=== PATIENT | male | born 1990 | race African-American/Black ===

== ENCOUNTER 2021-12-27 19:16 | Inpatient (IN) | payer MEDICAID ==
[~2021-12-27] VITALS: Ht 175.3 cm; Wt 94.1 kg
--- NOTE | 2021-12-27 20:11 | PHYS DOC ---
Past Medical History Additional Past Medical Histor: Premature 26 weeks Past Surgical History: Other Additional Past Surgical Histo: colectomy x2, head bleed / heart surgery as b jeannette Smoking Status: Never Smoker Alcohol Use: None General Adult EDM: Chief Complaint: ABDOMINAL PAIN HPI: HPI: Patient is a 31 year old male presents with his sister for evaluation of abdominal pain associated with nausea vomiting and diarrhea. Patient was born 26 weeks . Patient subsequently underwent brain cardiac and abdominal surgeries when younger. Sister states patient recently had similar abdominal symptoms and states patient had a twisting of his bowels. 2 AM this morning patient started to have nausea vomiting and diarrhea. This afternoon 1600 hrs. patient was treated with Pepto-Bismol for his nausea vomiting diarrhea. At that time patient's abdominal pain started. On exam patient's abdomen is diffusely tender. Review of Systems: Review of Systems: Constitutional: Denies fever or chills. [] Eyes: Denies change in visual acuity. [] HENT: Denies nasal congestion or sore throat. [] Respiratory: Denies cough or shortness of breath. [] Cardiovascular: Denies chest pain or edema. [] GI: Positive abdominal pain, Positive nausea, Positive vomiting, Positive diarrhea. [] : Denies dysuria. [] Musculoskeletal: Denies back pain or joint pain. [] Integument: Denies rash. [] Neurologic: Denies headache, focal weakness or sensory changes. [] Endocrine: Denies polyuria or polydipsia. [] Lymphatic: Denies swollen glands. [] Psychiatric: Denies depression or anxiety. [] Heart Score: C/O Chest Pain: N/A Risk Factors: Risk Factors: DM, Current or recent (<one month) smoker, HTN, HLP, family history of CAD, obesity. Risk Scores: Score 0 - 3: 2.5% MACE over next 6 weeks - Discharge Home Score 4 - 6: 20.3% MACE over next 6 weeks - Admit for Clinical Observation Score 7 - 10: 72.7% MACE over next 6 weeks - Early Invasive Strategies Current Medications: Current Medications Medications (Trade) Dose Ordered Sig/Twin Start Time Stop Time Status Last Admin Dose Admin Morphine Sulfate (Morphine Sulfate) 4 mg PRN Q2HR PRN 12/27/21 20:15 Ondansetron HCl (Zofran) 4 mg 1X ONCE 12/27/21 20:15 12/27/21 20:16 Sodium Chloride 1,000 ml @ 1,000 mls/hr 1X ONCE 12/27/21 20:15 12/27/21 21:14 Allergies: Allergies: Allergies Coded Allergies Type Severity Reaction Last Updated Verified No Known Drug Allergies 12/27/21 No Physical Exam: PE: Constitutional: Well developed, well nourished, no acute distress, non-toxic appearance. [] HENT: Normocephalic, atraumatic, bilateral external ears normal, oropharynx moist, no oral exudates, nose normal. [] Eyes: PERRLA, EOMI, conjunctiva normal, no discharge. [] Neck: Normal range of motion, no tenderness, supple, no stridor. [] Cardiovascular:Heart rate regular rhythm, no murmur [] Lungs & Thorax: Bilateral breath sounds clear to auscultation [] Abdomen: Bowel sounds normal, diffusely tenderness, no masses, no pulsatile masses. [] Skin: Warm, dry, no erythema, no rash. [] Back: No tenderness, no CVA tenderness. [] Extremities: No tenderness, no cyanosis, no clubbing, ROM intact, no edema. [] Neurologic: Alert , normal motor function, normal sensory function, no focal deficits noted. [] Psychologic: Affect normal, judgement normal, mood normal. [] Current Patient Data: Vital Signs: Vital Signs Date Time Temp Pulse Resp B/P (MAP) Pulse Ox O2 Delivery O2 Flow Rate FiO2 12/27/21 19:25 98.4 83 18 143/79 (100) 98 Room Air 98.4 EKG: EKG: [] Radiology/Procedures: Radiology/Procedures: [] Impression: Multiple dilated small bowel loops identified in the right mid and right lower abdomen likely small bowel obstruction with probable transition point identified in the mid abdomen Course & Med Decision Making: Course & Med Decision Making Pertinent Labs and Imaging studies reviewed. (See chart for details) [] Radiologic imaging consistent with small bowel obstruction. Patient's pain treated with morphine. He also received IV fluids. An NG tube will be ordered. Patient will be admitted to the hospitalist with general surgery consult. Aleshia Disclaimer: Aleshia Disclaimer: This electronic medical record was generated, in whole or in part, using a voice recognition dictation system. Departure Departure Impression: Primary Impression: Small bowel obstruction Disposition: HOME / SELF CARE / HOMELESS Condition: STABLE Patient Instructions: Small Bowel Obstruction NELIDA BARRERA DO Dec 27, 2021 20:11
[2021-12-27] MEDS ORDERED: IV NORMAL SALINE 1000ML BAG 1,000 ML IV ONE (20:15)
[2021-12-27] MEDS ORDERED: ONDANSETRON PF 4 MG/2 ML VIAL. IVP ONE (20:15)
[2021-12-27] MEDS ORDERED: MORPHINE SULFATE 4 MG/ML INJ. IV PRN (20:15)
[2021-12-27 20:21] LABS: BASO % 0 % (0-3); EOS % 1 % (0-3); HEMATOCRIT 46.5 % (39.0-53.0); LYMPH # 0.5 x10^3/uL (1.0-4.8); LYMPH % 10 % (24-48); MEAN CORPUSCULAR HEMOGLOBIN 27 pg (25-35); MEAN CORPUSCULAR HGB CONC 32 g/dL (31-37); MEAN CORPUSCULAR VOLUME 82 fL (79-100); MONO # 0.7 x10^3/uL (0.0-1.1); MONO % 12 % (0-9); NEUT # 4.2 x10^3/uL (1.8-7.7); NEUT % 77 % (31-73); PLATELET COUNT 301 x10^3/uL (140-400); RED BLOOD COUNT 5.64 x10^6/uL (4.30-5.70); RED CELL DISTRIBUTION WIDTH 13.2 % (11.5-14.5); WHITE BLOOD COUNT 5.5 x10^3/uL (4.0-11.0)
[2021-12-27] MEDS ORDERED: IOHEXOL 300 MG/ML 100ML VIAL. IV ONE (21:00)
[2021-12-27] MEDS ORDERED: CONTRAST GIVEN. MC PRN (21:15)
[2021-12-27 21:17] LABS: CALCIUM 8.7 mg/dL (8.5-10.1); CREATININE 1.1 mg/dL (0.7-1.3); GFR 94.5; POTASSIUM 3.5 mmol/L (3.5-5.1)
[2021-12-27 21:23] LABS: ALBUMIN 3.7 g/dL (3.4-5.0); ALBUMIN/GLOBULIN RATIO 1.1 (1.0-1.7); TOTAL BILIRUBIN 1.2 mg/dL (0.2-1.0); TOTAL PROTEIN 7.2 g/dL (6.4-8.2)
--- NOTE | 2021-12-27 21:56 | RAD ---
Examination: CT of the abdomen pelvis with IV contrast HISTORY: History of abdominal pain COMPARISON: None available Technique: Axial CT images of the abdomen pelvis were performed IV contrast. Coronal and sagittal ref ormats are performed Exposure: One or more of the following individualized dose reduction techniques were utilized for thi s examination: 1. Automated exposure control 2. Adjustment of the mA and/or kV according to patient size 3. Use of iterative reconstruction technique. FINDINGS: The bibasilar lungs are clear. No evidence of free air identified in the abdomen The liver, adrenals grossly appears unremarkable. There is a cystic structure identified in the poste rior portion the spleen measuring 1.5 cm probably cyst. The stomach is mildly distended. The gallblad arnav is mildly distended. Multiple dilated small bowel loops identified in the right mid and right low er abdomen. Probable transition point identified in the mid abdomen best seen on series 2 image 56. Feces and gas noted in the colon. Urinary bladder is mildly distended Bilateral kidneys enhance symmetrically. No evidence of lytic bony destructive lesion IMPRESSION: 1. Multiple dilated small bowel loops identified in the right mid and right lower abdomen likely sma ll bowel obstruction with probable transition point identified in the mid abdomen Electronically signed by: Gatito Corbett MD (12/27/2021 9:53 PM) [id number]
[2021-12-27] MEDS ORDERED: ONDANSETRON PF 4 MG/2 ML VIAL. IVP PRN (22:15)
[2021-12-27] MEDS ORDERED: MORPHINE SULFATE 2 MG/ML INJ. IVP PRN (22:15)
[2021-12-27] MEDS ORDERED: BENZOCAINE ONE 20% MUCOSAL SPRAY. (22:59)
[2021-12-27] MEDS ORDERED: BENZOCAINE ONE 20% MUCOSAL SPRAY. MM (23:15)
--- NOTE | 2021-12-27 23:34 | RAD ---
XR ABDOMEN 1V 12/27/2021 11:20 PM INDICATION: Nasogastric tube COMPARISON: None available. TECHNIQUE: Single limited view of the abdomen is provided. FINDINGS/ IMPRESSION: Nasogastric tube is identified with the side port projecting over the left upper quadrant abdomen in expected region of the stomach. Gas-filled loops of small and large bowel are noted without significant dilatation. Lung bases are cl ear. Electronically signed by: Ailyn Dias MD (12/27/2021 11:32 PM) TRAMAINE
[2021-12-27 23:59] VITALS: BP 124/74
--- NOTE | 2021-12-28 00:28 | NUR ---
Call to Chanel RN in ED to verify NG in proper position for use and clarification of suction on NG. Chanel stated that DR. Gutiérrez stated NG was okay to use and clarification for NG to low intermittent suction.
[2021-12-28] MEDS ORDERED: GABA100C6 PO (01:06)
[2021-12-28] MEDS ORDERED: TIZA-75 PO (01:07)
[2021-12-28] MEDS: IV NORMAL SALINE 1000ML BAG 1,000 ML IV SCH ×3 (01:59→22:20)
[2021-12-28 03:00] VITALS: BP 113/69
[2021-12-28 07:00] VITALS: BP 107/68
--- NOTE | 2021-12-28 09:01 | PDOC2 ---
CONSULT Date of Consult Date of Consult DATE: 12/28/21 TIME: 08:56 Reason for Consult Reason for Consult: Abdominal pain nausea vomiting diarrhea Referring Physician Referring Physician: Hospitalist Identification/Chief Complaint Chief Complaint Abdominal pain Source Source: Chart review, Patient History of Present Illness Reason for Visit: 31-year-old male who yesterday after eating at [employer] few hours later developed nausea vomiting and diarrhea and abdominal pain the pain became worse to the point where he came to the emergency department for further evaluation. CT scan was performed which showed dilated loops of small bowel concerning for small bowel obstruction versus ileus. Currently patient is resting comfortably in bed states he is feeling a little bit better still some abdominal pain and feels somewhat bloated NG tube is in place Past Medical History Cardiovascular: Other (Heart surgery as an ) Pulmonary: No pertinent hx CENTRAL NERVOUS SYSTEM: Other (Brain surgery as an infant) GI: No pertinent hx Heme/Onc: No pertinent hx Hepatobiliary: No pertinent hx Psych: No pertinent hx Infectious disease: No pertinent hx ENT: No pertinent hx Renal/: No pertinent hx Endocrine: No pertinent hx Dermatology: No pertinent hx Past Surgical History Past Surgical History: Other (Colon resection x2, heart surgery, brain surgery all as ) Family History Family History: No Significant Social History No ALCOHOL: none Drugs: None Lives: with Family Current Problem List Problem List Problems Medical Problems: (1) Small bowel obstruction Status: Acute Current Medications Current Medications Current Medications Sodium Chloride 1,000 ml @ 1,000 mls/hr 1X ONCE IV Last administered on 12/27/21at 20:15; Start 12/27/21 at 20:15; Stop 12/27/21 at 21:14; Status DC Morphine Sulfate (Morphine Sulfate) 4 mg PRN Q2HR PRN IV PAIN Last administered on 12/27/21at 20:16; Start 12/27/21 at 20:15 Ondansetron HCl (Zofran) 4 mg 1X ONCE IVP Last administered on 12/27/21at 20:16; Start 12/27/21 at 20:15; Stop 12/27/21 at 20:16; Status DC Iohexol (Omnipaque 300 Mg/ml) 75 ml 1X ONCE IV ; Start 12/27/21 at 21:00; Stop 12/27/21 at 21:01; Status DC Info (CONTRAST GIVEN -- Rx MONITORING) 1 each PRN DAILY PRN MC SEE COMMENTS; Start 12/27/21 at 21:15; Stop 12/29/21 at 21:14 Ondansetron HCl (Zofran) 4 mg PRN Q8HRS PRN IVP NAUSEA/VOMITING; Start 12/27/21 at 22:15; Stop 12/28/21 at 22:14 Morphine Sulfate (Morphine Sulfate) 2 mg PRN Q2HR PRN IVP PAIN; Start 12/27/21 at 22:15; Stop 12/28/21 at 22:14 Benzocaine (Hurricaine One) 1 spray STK-MED ONCE .ROUTE ; Start 12/27/21 at 22:59; Stop 12/27/21 at 23:00; Status DC Benzocaine (Hurricaine One) 1 spray 1X ONCE MM Last administered on 12/27/21at 23:02; Start 12/27/21 at 23:15; Stop 12/27/21 at 23:16; Status DC Sodium Chloride 1,000 ml @ 100 mls/hr Q10H IV Last administered on 12/28/21at 01:59; Start 12/28/21 at 01:45 Active Scripts Active Reported Tizanidine Hcl 4 Mg Tablet 10 Mg PO QIDPRN PRN Gabapentin 100 Mg Capsule 100 Mg PO BID Allergies Allergies: Coded Allergies: No Known Drug Allergies (Unverified , 12/27/21) ROS General: No: Chills, Night Sweats, Fatigue, Malaise, Appetite, Other PSYCHOLOGICAL ROS: No: Anxiety, Behavioral Disorder, Concentration difficultie, Decreased libido, Depression, Disorientation, Hallucinations, Hostility, Irritablity, Memory difficulties, Mood Swings, Obsessive thoughts, Physical abuse, Sexual abuse, Sleep disturbances, Suicidal ideation, Other Eyes: No Blurry vision, No Decreased vision, No Double vision, No Dry eyes, No Excessive tearing, No Eye Pain, No Itchy Eyes, No Loss of vision, No Photophobia, No Scotomata, No Uses contacts, No Uses glasses, No Other HEENT: No: Heacaches, Visual Changes, Hearing change, Nasal congestion, Nasal discharge, Oral lesions, Sinus pain, Sore Throat, Epistaxis, Sneezing, Snoring, Tinnitus, Vertigo, Vocal changes, Other ALLERGY AND IMMUNOLOGY: No: Hives, Insect Bite Sensitivity, Itchy/Watery Eyes, Nasal Congestion, Post Nasal Drip, Seasonal Allergies, Other Hematological and Lymphatic: No: Bleeding Problems, Blood Clots, Blood Transfus ions, Brusing, Night Sweats, Pallor, Swollen Lymph Nodes, Other ENDOCRINE: No: Breast Changes, Galactorrhea, Hair Pattern Changes, Hot Flashes, Malaise/lethargy, Mood Swings, Palpitations, Polydipsia/polyuria, Skin Changes, Temperature Intolerance, Unexpected Weight Changes, Other Respiratory: No: Cough, Hemoptysis, Orthopnea, Pleuritic Pain, Shortness of breath, SOB with excertion, Sputum Changes, Stridor, Tachypnea, Wheezing, Other Cardiovascular: No Chest Pain, No Palpitations, No Orthopnea, No Paroxysmal Noc. Dyspnea, No Edema, No Lt Headedness, No Other Gastrointestinal: Yes Nausea, Yes Vomiting, Yes Abdominal Pain, Yes Diarrhea Genitourinary: No Dysuria, No Frequency, No Incontinence, No Hematuria, No Retention, No Discharge, No Urgency, No Pain, No Flank Pain, No Other, No , No , No , No , No , No , No Musculoskeletal: No Gait Disturbance, No Joint Pain, No Joint Stiffness, No Joint Swelling, No Muscle Pain, No Muscular Weakness, No Pain In:, No Swelling In:, No Other Neurological: No Behavorial Changes, No Bowel/Bladder ControlChng, No Co nfusion, No Dizziness, No Gait Disturbance, No Headaches, No Impaired Coord/balance, No Memory Loss, No Numbness/Tingling, No Seizures, No Speech Problems, No Tremors, No Visual Changes, No Weakness, No Other Skin: No Dry Skin, No Eczema, No Hair Changes, No Lumps, No Mole Changes, No Mottling, No Nail Changes, No Pruritus, No Rash, No Skin Lesion Changes, No Other, No Acne Physical Exam General: Alert, Oriented X3, Cooperative, mild distress HEENT: Atraumatic, PERRLA, EOMI Lungs: Clear to auscultation, Normal air movement Heart: Regular rate, No murmurs Abdomen: Soft, Other (Mildly diffusely tender no peritoneal signs mildly distended) Extremities: No edema Skin: No significant lesion Neuro: Normal speech Psych/Mental Status: Mental status NL Vitals VITALS Vital Signs Date Time Temp Pulse Resp B/P (MAP) Pulse Ox O2 Delivery O2 Flow Rate FiO2 4/1/22 07:00 98.2 78 18 107/68 (81) 92 Room Air 98.2 Labs Labs Laboratory Tests Test 12/27/21 19:58 12/27/21 21:00 White Blood Count 5.5 x10^3/uL (4.0-11.0) Red Blood Count 5.64 x10^6/uL (4.30-5.70) Hemoglobin 15.0 g/dL (13.0-17.5) Hematocrit 46.5 % (39.0-53.0) Mean Corpuscular Volume 82 fL (79-100) Mean Corpuscular Hemoglobin 27 pg (25-35) Mean Corpuscular Hemoglobin Concent 32 g/dL (31-37) Red Cell Distribution Width 13.2 % (11.5-14.5) Platelet Count 301 x10^3/uL (140-400) Neutrophils (%) (Auto) 77 % (31-73) Lymphocytes (%) (Auto) 10 % (24-48) Monocytes (%) (Auto) 12 % (0-9) Eosinophils (%) (Auto) 1 % (0-3) Basophils (%) (Auto) 0 % (0-3) Neutrophils # (Auto) 4.2 x10^3/uL (1.8-7.7) Lymphocytes # (Auto) 0.5 x10^3/uL (1.0-4.8) Monocytes # (Auto) 0.7 x10^3/uL (0.0-1.1) Eosinophils # (Auto) 0.0 x10^3/uL (0.0-0.7) Basophils # (Auto) 0.0 x10^3/uL (0.0-0.2) Sodium Level 142 mmol/L (136-145) Potassium Level 3.5 mmol/L (3.5-5.1) Chloride Level 106 mmol/L (98-107) Carbon Dioxide Level 31 mmol/L (21-32) Anion Gap 5 (6-14) Blood Urea Nitrogen 13 mg/dL (8-26) Creatinine 1.1 mg/dL (0.7-1.3) Estimated GFR (Cockcroft-Gault) 94.5 BUN/Creatinine Ratio 12 (6-20) Glucose Level 92 mg/dL (70-99) Calcium Level 8.7 mg/dL (8.5-10.1) Total Bilirubin 1.2 mg/dL (0.2-1.0) Aspartate Amino Transf (AST/SGOT) 14 U/L (15-37) Alanine Aminotransferase (ALT/SGPT) 16 U/L (16-63) Alkaline Phosphatase 59 U/L (46-116) Total Protein 7.2 g/dL (6.4-8.2) Albumin 3.7 g/dL (3.4-5.0) Albumin/Globulin Ratio 1.1 (1.0-1.7) Lipase 118 U/L (73-393) Laboratory Tests Test 12/27/21 19:58 12/27/21 21:00 White Blood Count 5.5 x10^3/uL (4.0-11.0) Red Blood Count 5.64 x10^6/uL (4.30-5.70) Hemoglobin 15.0 g/dL (13.0-17.5) Hematocrit 46.5 % (39.0-53.0) Mean Corpuscular Volume 82 fL (79-100) Mean Corpuscular Hemoglobin 27 pg (25-35) Mean Corpuscular Hemoglobin Concent 32 g/dL (31-37) Red Cell Distribution Width 13.2 % (11.5-14.5) Platelet Count 301 x10^3/uL (140-400) Neutrophils (%) (Auto) 77 % (31-73) Lymphocytes (%) (Auto) 10 % (24-48) Monocytes (%) (Auto) 12 % (0-9) Eosinophils (%) (Auto) 1 % (0-3) Basophils (%) (Auto) 0 % (0-3) Neutrophils # (Auto) 4.2 x10^3/uL (1.8-7.7) Lymphocytes # (Auto) 0.5 x10^3/uL (1.0-4.8) Monocytes # (Auto) 0.7 x10^3/uL (0.0-1.1) Eosinophils # (Auto) 0.0 x10^3/uL (0.0-0.7) Basophils # (Auto) 0.0 x10^3/uL (0.0-0.2) Sodium Level 142 mmol/L (136-145) Potassium Level 3.5 mmol/L (3.5-5.1) Chloride Level 106 mmol/L (98-107) Carbon Dioxide Level 31 mmol/L (21-32) Anion Gap 5 (6-14) Blood Urea Nitrogen 13 mg/dL (8-26) Creatinine 1.1 mg/dL (0.7-1.3) Estimated GFR (Cockcroft-Gault) 94.5 BUN/Creatinine Ratio 12 (6-20) Glucose Level 92 mg/dL (70-99) Calcium Level 8.7 mg/dL (8.5-10.1) Total Bilirubin 1.2 mg/dL (0.2-1.0) Aspartate Amino Transf (AST/SGOT) 14 U/L (15-37) Alanine Aminotransferase (ALT/SGPT) 16 U/L (16-63) Alkaline Phosphatase 59 U/L (46-116) Total Protein 7.2 g/dL (6.4-8.2) Albumin 3.7 g/dL (3.4-5.0) Albumin/Globulin Ratio 1.1 (1.0-1.7) Lipase 118 U/L (73-393) Images Images As in the history of present illness Assessment/Plan Assessment/Plan Abdominal pain with distention NG tube in place with clear output nonbilious. Ileus versus small bowel obstruction we will treat conservatively at this point with NG suction bowel rest repeat abdominal films in ОЛЕГ Lizama MD Dec 28, 2021 09:01
[2021-12-28 11:00] VITALS: BP 102/66
--- NOTE | 2021-12-28 12:28 | PDOC1 ---
History and Physical Date of Service: DOS: DATE: 12/28/21 TIME: 12:27 Chief Complaint: Chief Complain: Nausea vomiting History of Present Illness: HPI: 31 year old male presents with his sister for evaluation of abdominal pain associated with nausea vomiting and diarrhea. Patient was born 26 weeks . Patient subsequently underwent brain cardiac and abdominal surgeries when younger. Sister states patient recently had similar abdominal symptoms and states patient had a twisting of his bowels. 2 AM this morning patient started to have nausea vomiting and diarrhea. This afternoon 1600 hrs. patient was treated with Pepto-Bismol for his nausea v omiting diarrhea. At that time patient's abdominal pain started. On exam patient's abdomen is diffusely tender Past Medical/Surgical History: PMH/PSH: Additional Past Medical Histor: Premature 26 weeks Past Surgical History: Other Additional Past Surgical Histo: colectomy x2, head bleed / heart surgery as baby Smoking Status: Never Smoker Alcohol Use: None Allergies: Allergies: Coded Allergies: No Known Drug Allergies (Unverified , 12/27/21) Family History: Family History: None known per patient Current Medications: Current Medications Current Medications Sodium Chloride 1,000 ml @ 1,000 mls/hr 1X ONCE IV Last administered on 12/27/21at 20:15; Start 12/27/21 at 20:15; Stop 12/27/21 at 21:14; Status DC Morphine Sulfate (Morphine Sulfate) 4 mg PRN Q2HR PRN IV PAIN Last administered on 12/27/21at 20:16; Start 12/27/21 at 20:15 Ondansetron HCl (Zofran) 4 mg 1X ONCE IVP Last administered on 12/27/21at 20:16; Start 12/27/21 at 20:15; Stop 12/27/21 at 20:16; Status DC Iohexol (Omnipaque 300 Mg/ml) 75 ml 1X ONCE IV ; Start 12/27/21 at 21:00; Stop 12/27/21 at 21:01; Status DC Info (CONTRAST GIVEN -- Rx MONITORING) 1 each PRN DAILY PRN MC SEE COMMENTS; Start 12/27/21 at 21:15; Stop 12/29/21 at 21:14 Ondansetron HCl (Zofran) 4 mg PRN Q8HRS PRN IVP NAUSEA/VOMITING; Start 12/27/21 at 22:15; Stop 12/28/21 at 22:14 Morphine Sulfate (Morphine Sulfate) 2 mg PRN Q2HR PRN IVP PAIN; Start 12/27/21 at 22:15; Stop 12/28/21 at 22:14 Benzocaine (Hurricaine One) 1 spray STK-MED ONCE .ROUTE ; Start 12/27/21 at 22:59; Stop 12/27/21 at 23:00; Status DC Benzocaine (Hurricaine One) 1 spray 1X ONCE MM Last administered on 12/27/21at 23:02; Start 12/27/21 at 23:15; Stop 12/27/21 at 23:16; Status DC Sodium Chloride 1,000 ml @ 100 mls/hr Q10H IV Last administered on 12/28/21at 12:08; Start 12/28/21 at 01:45 Active Scripts Active Reported Tizanidine Hcl 4 Mg Tablet 10 Mg PO QIDPRN PRN Gabapentin 100 Mg Capsule 100 Mg PO BID ROS: Review of Systems Review of System Unless noted in HPI 14 point review of systems is negative Physical Exam: Vital Signs: Vital Signs Date Time Temp Pulse Resp B/P (MAP) Pulse Ox O2 Delivery O2 Flow Rate FiO2 12/28/21 11:00 98.0 78 16 102/66 (78) 94 Room Air 98.0 Physcial Exam: GEN: No apparent distress. Alert and oriented HEENT: Normal cephalic, atraumatic, external auditory canals are patent EYES: Extraocular muscles are intact, pupil are equally round and reactive to light and accommodation MUSCULOSKELETAL: Well developed , well nourished, good range of motion ENDOCRINE: No thyromegaly was palpated LYMPHATICS: No cervical chain or axillary nodes were noted HEMATOPOIETIC: No bruising NECK: Supple, no JVD, no thyromegaly was noted LUNGS: Clear to auscultation in all lung walker without rhonchi or wheezing HEART: RRR, S!, S2 present. Peripheral pulses intact, no obvious murmurs noted ABDOMEN: Soft, nontender. Positive bowel sounds, no organomegaly, normal bowel sounds EXTREMITIES: Without clubbing, cyanosis, or edema. Pedal pulses intact. Negative Homans sign NEUROLOGIC: Normal speech and tone. A&O x 3, moves all extremities, no obvious focal deficits PSYCHIATRIC: Normal affect, normal mood. Stable SKIN: No ulcerations or rashes, good skin turgor, no jaundice VASCULAR: Good capillary refill, neurovascular bundle appears to be intact Labs: Labs: Laboratory Tests Test 12/27/21 19:58 12/27/21 21:00 White Blood Count 5.5 x10^3/uL (4.0-11.0) Red Blood Count 5.64 x10^6/uL (4.30-5.70) Hemoglobin 15.0 g/dL (13.0-17.5) Hematocrit 46.5 % (39.0-53.0) Mean Corpuscular Volume 82 fL (79-100) Mean Corpuscular Hemoglobin 27 pg (25-35) Mean Corpuscular Hemoglobin Concent 32 g/dL (31-37) Red Cell Distribution Width 13.2 % (11.5-14.5) Platelet Count 301 x10^3/uL (140-400) Neutrophils (%) (Auto) 77 % (31-73) Lymphocytes (%) (Auto) 10 % (24-48) Monocytes (%) (Auto) 12 % (0-9) Eosinophils (%) (Auto) 1 % (0-3) Basophils (%) (Auto) 0 % (0-3) Neutrophils # (Auto) 4.2 x10^3/uL (1.8-7.7) Lymphocytes # (Auto) 0.5 x10^3/uL (1.0-4.8) Monocytes # (Auto) 0.7 x10^3/uL (0.0-1.1) Eosinophils # (Auto) 0.0 x10^3/uL (0.0-0.7) Basophils # (Auto) 0.0 x10^3/uL (0.0-0.2) Sodium Level 142 mmol/L (136-145) Potassium Level 3.5 mmol/L (3.5-5.1) Chloride Level 106 mmol/L (98-107) Carbon Dioxide Level 31 mmol/L (21-32) Anion Gap 5 (6-14) Blood Urea Nitrogen 13 mg/dL (8-26) Creatinine 1.1 mg/dL (0.7-1.3) Estimated GFR (Cockcroft-Gault) 94.5 BUN/Creatinine Ratio 12 (6-20) Glucose Level 92 mg/dL (70-99) Calcium Level 8.7 mg/dL (8.5-10.1) Total Bilirubin 1.2 mg/dL (0.2-1.0) Aspartate Amino Transf (AST/SGOT) 14 U/L (15-37) Alanine Aminotransferase (ALT/SGPT) 16 U/L (16-63) Alkaline Phosphatase 59 U/L (46-116) Total Protein 7.2 g/dL (6.4-8.2) Albumin 3.7 g/dL (3.4-5.0) Albumin/Globulin Ratio 1.1 (1.0-1.7) Lipase 118 U/L (73-393) Laboratory Tests Test 12/27/21 19:58 12/27/21 21:00 White Blood Count 5.5 x10^3/uL (4.0-11.0) Red Blood Count 5.64 x10^6/uL (4.30-5.70) Hemoglobin 15.0 g/dL (13.0-17.5) Hematocrit 46.5 % (39.0-53.0) Mean Corpuscular Volume 82 fL (79-100) Mean Corpuscular Hemoglobin 27 pg (25-35) Mean Corpuscular Hemoglobin Concent 32 g/dL (31-37) Red Cell Distribution Width 13.2 % (11.5-14.5) Platelet Count 301 x10^3/uL (140-400) Neutrophils (%) (Auto) 77 % (31-73) Lymphocytes (%) (Auto) 10 % (24-48) Monocytes (%) (Auto) 12 % (0-9) Eosinophils (%) (Auto) 1 % (0-3) Basophils (%) (Auto) 0 % (0-3) Neutrophils # (Auto) 4.2 x10^3/uL (1.8-7.7) Lymphocytes # (Auto) 0.5 x10^3/uL (1.0-4.8) Monocytes # (Auto) 0.7 x10^3/uL (0.0-1.1) Eosinophils # (Auto) 0.0 x10^3/uL (0.0-0.7) Basophils # (Auto) 0.0 x10^3/uL (0.0-0.2) Sodium Level 142 mmol/L (136-145) Potassium Level 3.5 mmol/L (3.5-5.1) Chloride Level 106 mmol/L (98-107) Carbon Dioxide Level 31 mmol/L (21-32) Anion Gap 5 (6-14) Blood Urea Nitrogen 13 mg/dL (8-26) Creatinine 1.1 mg/dL (0.7-1.3) Estimated GFR (Cockcroft-Gault) 94.5 BUN/Creatinine Ratio 12 (6-20) Glucose Level 92 mg/dL (70-99) Calcium Level 8.7 mg/dL (8.5-10.1) Total Bilirubin 1.2 mg/dL (0.2-1.0) Aspartate Amino Transf (AST/SGOT) 14 U/L (15-37) Alanine Aminotransferase (ALT/SGPT) 16 U/L (16-63) Alkaline Phosphatase 59 U/L (46-116) Total Protein 7.2 g/dL (6.4-8.2) Albumin 3.7 g/dL (3.4-5.0) Albumin/Globulin Ratio 1.1 (1.0-1.7) Lipase 118 U/L (73-393) Assessment/Plan Assessment/Plan Abdominal pain secondary to ileus versus small bowel obstruction -Presented to ER with abdominal pain nausea vomiting -Imaging suggestive of ileus versus small bowel obstruction -Continue NG tube to low intermittent suction -Surgical consultation. Repeating imaging in the morning -N.p.o. -DVT prophylaxis 27 minutes advance care planning Justifications for Admission Other Justification DRU MONTIEL MD Dec 28, 2021 12:27
[2021-12-28] MEDS ORDERED: PHENOL ORAL SPRAY 177ML BOTTLE. PO PRN (14:45)
[2021-12-28 15:00] VITALS: BP 110/68
[2021-12-28 19:00] VITALS: BP 118/72
[2021-12-28 23:00] VITALS: BP 119/75
[2021-12-29 03:00] VITALS: BP 109/73
[2021-12-29 07:00] VITALS: BP 117/72
[2021-12-29] MEDS: IV NORMAL SALINE 1000ML BAG 1,000 ML IV SCH ×2 (07:55→17:45)
--- NOTE | 2021-12-29 08:04 | RAD ---
AP abdomen supine and upright views 12/29/2021. Reason for exam: Small bowel obstruction. Comparison is made with an exam of 12/27/2021. No free air is seen. NG tube remains in place in the stomach. There is gas in the stomach as well as large and small bowel. Minimal small bowel distention is seen. There is moderate stool in the colon. No abnormal masses or gas collections are apparent. IMPRESSION: Decreased small bowel distention. Electronically signed by: Jeovany Reed Jr., MD (12/29/2021 8:01 AM) [id number]
--- NOTE | 2021-12-29 10:59 | PDOC ---
SURGICAL PROGRESS NOTE DATE: 12/29/21 TIME: 10:58 Subjective Pt feels better, denies pain, passing flatus Vital Signs Vital Signs Date Time Temp Pulse Resp B/P (MAP) Pulse Ox O2 Delivery O2 Flow Rate FiO2 12/29/21 08:01 Room Air 12/29/21 07:00 98.0 89 20 117/72 (87) 95 98.0 I&O Intake and Output 12/29/21 07:00 Output Total 1376 ml Balance -1376 ml Output Urine Total 976 ml Gastric Drainage Total 400 ml General: Alert, Oriented X3, Cooperative, No acute distress Abdomen: Soft, No tenderness, Other (well healed incision) Labs Laboratory Tests Test 12/27/21 19:58 12/27/21 21:00 White Blood Count 5.5 x10^3/uL (4.0-11.0) Red Blood Count 5.64 x10^6/uL (4.30-5.70) Hemoglobin 15.0 g/dL (13.0-17.5) Hematocrit 46.5 % (39.0-53.0) Mean Corpuscular Volume 82 fL (79-100) Mean Corpuscular Hemoglobin 27 pg (25-35) Mean Corpuscular Hemoglobin Concent 32 g/dL (31-37) Red Cell Distribution Width 13.2 % (11.5-14.5) Platelet Count 301 x10^3/uL (140-400) Neutrophils (%) (Auto) 77 % (31-73) Lymphocytes (%) (Auto) 10 % (24-48) Monocytes (%) (Auto) 12 % (0-9) Eosinophils (%) (Auto) 1 % (0-3) Basophils (%) (Auto) 0 % (0-3) Neutrophils # (Auto) 4.2 x10^3/uL (1.8-7.7) Lymphocytes # (Auto) 0.5 x10^3/uL (1.0-4.8) Monocytes # (Auto) 0.7 x10^3/uL (0.0-1.1) Eosinophils # (Auto) 0.0 x10^3/uL (0.0-0.7) Basophils # (Auto) 0.0 x10^3/uL (0.0-0.2) Sodium Level 142 mmol/L (136-145) Potassium Level 3.5 mmol/L (3.5-5.1) Chloride Level 106 mmol/L (98-107) Carbon Dioxide Level 31 mmol/L (21-32) Anion Gap 5 (6-14) Blood Urea Nitrogen 13 mg/dL (8-26) Creatinine 1.1 mg/dL (0.7-1.3) Estimated GFR (Cockcroft-Gault) 94.5 BUN/Creatinine Ratio 12 (6-20) Glucose Level 92 mg/dL (70-99) Calcium Level 8.7 mg/dL (8.5-10.1) Total Bilirubin 1.2 mg/dL (0.2-1.0) Aspartate Amino Transf (AST/SGOT) 14 U/L (15-37) Alanine Aminotransferase (ALT/SGPT) 16 U/L (16-63) Alkaline Phosphatase 59 U/L (46-116) Total Protein 7.2 g/dL (6.4-8.2) Albumin 3.7 g/dL (3.4-5.0) Albumin/Globulin Ratio 1.1 (1.0-1.7) Lipase 118 U/L (73-393) I have reviewed the following KUB improved Problem List Problems Medical Problems: (1) Small bowel obstruction Status: Acute Assessment/Plan appears improved clinically and by XR will clamp NGT and start clears. Justicifation of Admission Dx: Justifications for Admission: Justification of Admission Dx: Yes Comments: bowel obstruction requiring NGT HUBER BASILIO MD Dec 29, 2021 10:59
[2021-12-29 11:18] VITALS: BP 118/68
[2021-12-29 15:19] VITALS: BP 123/87
[2021-12-29 19:30] VITALS: BP 139/73
--- NOTE | 2021-12-29 23:10 | PDOC ---
[facility] PROGRESS NOTE Date of Service DOS: DATE: 12/29/21 TIME: 23:08 Chief Complaint Chief Complaint Assessment/Plan Abdominal pain secondary to ileus versus small bowel obstruction -Presented to ER with abdominal pain nausea vomiting -Imaging suggestive of ileus versus small bowel obstruction -clamp NG tube -Surgical consultation. -ADAT -DVT prophylaxis History of Present Illness History of Present Illness 12/29 Patient evaluated examined at bedside. Doing well no major complaints other than sore throat from the NG tube. Clamp NG today based upon imaging from this morning. If can tolerate clear liquids can remove NG. Discussed this with the patient's mother on the phone as well. If does okay overnight can likely discharge tomorrow. Vitals/I&O Vitals/I&O: Vital Signs Date Time Temp Pulse Resp B/P (MAP) Pulse Ox O2 Delivery O2 Flow Rate FiO2 12/29/21 19:30 97.8 80 18 139/73 (95) 95 Room Air 97.8 I & O 12/28/21 12/28/21 12/29/21 15:00 23:00 07:00 Output Total 450 ml 251 ml 675 ml Balance -450 ml -251 ml -675 ml Physical Exam General: Alert, Oriented X3, Cooperative, No acute distress Heart: Regular rate, No murmurs Lungs: Clear Abdomen: Soft, No tenderness, Other (well healed incision) Extremities: No edema Skin: No significant lesion Assessment and Plan Assessmemt and Plan Problems Medical Problems: (1) Small bowel obstruction Status: Acute Comment Review of Relevant I have reviewed the following items hill (where applicable) has been applied. Justifications for Admission Other Justification DRU MONTIEL MD Dec 29, 2021 23:10
[2021-12-29 23:28] VITALS: BP 122/79
[2021-12-30 03:02] VITALS: BP 110/70
[2021-12-30] MEDS: IV NORMAL SALINE 1000ML BAG 1,000 ML IV SCH ×2 (03:58→18:37)
[2021-12-30 07:00] VITALS: BP 118/73
--- NOTE | 2021-12-30 10:34 | PDOC ---
SURGICAL PROGRESS NOTE DATE: 12/30/21 TIME: 10:33 Subjective Pt reports feeling better, no N/V with NGT clamped, continues to pass flatus Vital Signs Vital Signs Date Time Temp Pulse Resp B/P (MAP) Pulse Ox O2 Delivery O2 Flow Rate FiO2 12/30/21 07:00 97.9 76 18 118/73 (88) 93 Room Air 97.9 I&O Intake and Output 12/30/21 07:00 Intake Total 1344 ml Output Total 700 ml Balance 644 ml Intake Oral 440 ml IV Total 904 ml Output Urine Total 700 ml General: Alert, Oriented X3, Cooperative, No acute distress Abdomen: Soft, No tenderness Problem List Problems Medical Problems: (1) Small bowel obstruction Status: Acute Assessment/Plan will d/c NGT and stay on clears Justicifation of Admission Dx: Justifications for Admission: Justification of Admission Dx: Yes HUBER BASILIO MD Dec 30, 2021 10:34
[2021-12-30 11:00] VITALS: BP 120/78
--- NOTE | 2021-12-30 11:22 | NUR ---
Removed NG tube per Dr. Bergman's order. Patient tolerated it well
[2021-12-30 15:00] VITALS: BP 114/78
--- NOTE | 2021-12-30 17:35 | PDOC ---
[facility] PROGRESS NOTE Date of Service DOS: DATE: 12/30/21 TIME: 17:34 Chief Complaint Chief Complaint Assessment/Plan Abdominal pain secondary to ileus versus small bowel obstruction -Presented to ER with abdominal pain nausea vomiting -Imaging suggestive of ileus versus small bowel obstruction -clamp NG tube -Surgical consultation. -ADAT -DVT prophylaxis History of Present Illness History of Present Illness 12/30 Patient evaluated examined at bedside. NG removed this morning. Patient said feels a lot better having the tube out. Clear liquids today. Advance diet as tolerated. Possible discharge tomorrow. 12/29 Patient evaluated examined at bedside. Doing well no major complaints other than sore throat from the NG tube. Clamp NG today based upon imaging from this morning. If can tolerate clear liquids can remove NG. Discussed this with the patient's mother on the phone as well. If does okay overnight can likely discharge tomorrow. Vitals/I&O Vitals/I&O: Vital Signs Date Time Temp Pulse Resp B/P (MAP) Pulse Ox O2 Delivery O2 Flow Rate FiO2 12/30/21 15:00 98.1 71 18 114/78 (90) 94 Room Air 98.1 I & O 12/29/21 12/29/21 12/30/21 15:00 23:00 07:00 Intake Total 100 ml 1004 ml 240 ml Output Total 250 ml 450 ml Balance -150 ml 1004 ml -210 ml Physical Exam General: Alert, Oriented X3, Cooperative, No acute distress Heart: Regular rate, No murmurs Lungs: Clear Abdomen: Soft, No tenderness Extremities: No edema Skin: No significant lesion Assessment and Plan Assessmemt and Plan Problems Medical Problems: (1) Small bowel obstruction Status: Acute Comment Review of Relevant I have reviewed the following items hill (where applicable) has been applied. Justifications for Admission Other Justification DRU MONTIEL MD Dec 30, 2021 17:35
[2021-12-30 19:35] VITALS: BP 120/74
[2021-12-30 23:23] VITALS: BP 118/76
[2021-12-31 03:09] VITALS: BP 113/69
[2021-12-31] MEDS: IV NORMAL SALINE 1000ML BAG 1,000 ML IV SCH (04:33)
[2021-12-31 07:00] VITALS: BP 111/79
--- NOTE | 2021-12-31 08:59 | PDOC ---
DONTAE WESTBROOK APRN 12/31/21 0859: SURGICAL PROGRESS NOTE DATE: 12/31/21 TIME: 08:57 Subjective feels well tolerating diet + flatus no nausea Vital Signs Vital Signs Date Time Temp Pulse Resp B/P (MAP) Pulse Ox O2 Delivery O2 Flow Rate FiO2 12/31/21 07:00 98.4 70 18 111/79 (90) 96 Room Air 98.4 I&O Intake and Output 12/31/21 07:00 Intake Total 240 ml Output Total 950 ml Balance -710 ml Intake Oral 240 ml Output Urine Total 950 ml I have reviewed the following NO fevers, chills NO SOA, cough NO cp, palpations NO dysuria Problem List Problems Medical Problems: (1) Small bowel obstruction Status: Acute Assessment/Plan SBO advance diet ok to dc home if tolerating Justicifation of Admission Dx: Justifications for Admission: Justification of Admission Dx: Yes ОЛЕГ CAMPUZANO MD 12/31/21 1154: SURGICAL PROGRESS NOTE Assessment/Plan Overall clinically improving. Agree with Columba's assessment plan DONTAE WESTBROOK APRN Dec 31, 2021 08:59 ОЛГЕ CAMPUZANO MD Dec 31, 2021 11:54
[2021-12-31 11:00] VITALS: BP 115/73
--- NOTE | 2021-12-31 13:00 | NUR ---
Tolerated lunch, GI soft diet. No nausea or pain. Cont. monitor.
[2021-12-31 15:00] VITALS: BP 112/74
--- NOTE | 2021-12-31 17:35 | NUR ---
Discharge instructions given. No new prescription. Answered questions and concerns. Discharged home accompanied by sister.
== END 2021-12-31 17:35 | disposition home or self-care (01) | DRG 390 ==
LOC: ER 19:16 → 4 NORTH 22:24
PROVIDERS: ADMIT Student in an Organized Health Care Education/Training Program; ATTEND Student in an Organized Health Care Education/Training Program
PROC: 0D9670Z Drainage of Stomach with Drainage Device, Via Natural or Artificial Opening (ICD-10-PCS; principal; 2021-12-28)
DX: K56.609 Unspecified intestinal obstruction, unspecified as to partial versus complete obstruction (principal); K56.7 Ileus, unspecified
CPT/HCPCS: 36415; 74018; 74021; 74177; 80053; 83690; 85025; 96374; 96375; J2270; J2405; J7030; 99285-25; G0378